=== PATIENT | male | born 1990 | race Caucasian/White ===

== ENCOUNTER 2020-05-28 11:27 | Emergency (ER) | payer OTHER ==
[~2020-05-28] VITALS: Ht 172.7 cm; Wt 79.4 kg
[2020-05-28 12:00] VITALS: BP 120/72; Ht 172.7 cm; Wt 79.4 kg
== END 2020-05-28 15:21 | disposition home or self-care (01) ==
LOC: ED 11:27
DX: S92.491A Other fracture of right great toe, initial encounter for closed fracture (principal); S90.211A Contusion of right great toe with damage to nail, initial encounter; W20.8XXA Other cause of strike by thrown, projected or falling object, initial encounter; Y93.89 Activity, other specified; Y92.89 Other specified places as the place of occurrence of the external cause; Y99.8 Other external cause status